=== PATIENT | male | born 1980 | race Caucasian/White ===

== ENCOUNTER → 2017-05-09 | Outpatient (CLI) | payer BC ==
[2017-05-09 17:35] LABS: ANION GAP 10 MEQ/L (8-16); BLOOD UREA NITROGEN 19 MG/DL (7-18); CALCIUM LEVEL 9.4 MG/DL (8.5-10.1); CARBON DIOXIDE LEVEL 26 MEQ/L (21-32); CHLORIDE LEVEL 107 MEQ/L (98-107); CHOLESTEROL LEVEL 196 MG/DL (<200); CREATININE FOR GFR 1.18 MG/DL (0.70-1.30); GLOMERULAR FILTRATION RATE > 60.0 (>60); GLUCOSE, FASTING 106 MG/DL (70-105); POTASSIUM SERUM 4.1 MEQ/L (3.5-5.1); SODIUM LEVEL 143 MEQ/L (136-145); TRIGLYCERIDES LEVEL 156 MG/DL (<150)
== END ==
LOC: M WUC 11:47
PROVIDERS: ATTEND Student in an Organized Health Care Education/Training Program
DX: Z13.220 Encounter for screening for lipoid disorders (principal); Z83.3 Family history of diabetes mellitus

== ENCOUNTER → 2017-06-15 | Outpatient (CLI) | payer BC ==
--- NOTE | 2017-06-15 17:11 | REP ---
Soft tissue ultrasound of the dorsum of the right foot for a palpable mass: There are no comparison studies. There is a complex mass containing multiple solid and cystic components measuring 1.7 x 1.2 x 0.6 cm, corresponding to the palpable mass. This could represent abscess, hematoma, inclusion cyst, or neoplasm. I would recommend MRI follow-up. Signed by Justin Jimenez MD 06/15/2017 05:02 P
== END ==
LOC: M RAD 16:00
PROVIDERS: ATTEND Student in an Organized Health Care Education/Training Program
DX: R22.41 Localized swelling, mass and lump, right lower limb (principal)

== ENCOUNTER → 2017-07-09 | Outpatient (REF) | payer BC | LOC: M SFHCPLAZ 14:58 | PROVIDERS: ATTEND Family Medicine | DX: R00.0 Tachycardia, unspecified (principal) ==

== ENCOUNTER → 2017-08-03 | Outpatient (CLI) | payer BC ==
[~2017-08-03] MED LIST: PROHANCE 279.3MG/ML 15ML VIAL (A9576) As Ordered ONE; PROHANCE 279.3MG/ML 5ML VIAL (A9576) As Ordered ONE
--- NOTE | 2017-08-03 17:15 | REP ---
MRI RIGHT FOOT WITH AND WITHOUT CONTRAST: Multiple sequences obtained in the axial, coronal and sagittal planes prior to and following the intravenous administration of 25 mL of contrast. A palpable abnormality is present at the dorsum of the foot and this is marked on the skin. At the site of the reported palpable abnormality is a subcutaneous nodule which is hypointense on T1 and hyperintense on T2. There is enhancement of this subcutaneous nodule with a central area of nonenhancement, likely representing fluid. In total, the area measures 10 x 6 x 10 mm. A venous structure courses just deep to this subcutaneous nodule. No other abnormal signal is seen in the visualized soft tissues of the right foot and there is no other area of significant abnormal enhancement. The visualized osseous structures demonstrate normal marrow signal with no edema and no abnormal enhancement. IMPRESSION: At the site of the reported palpable abnormality, is a subcutaneous nodule with peripheral enhancement. There is a central nonenhancing cystic component. This may represent a complex or inflamed sebaceous cyst. The appearance is nonspecific. Signed by Justin Alexandre MD 08/06/2017 05:51 P
== END ==
LOC: M RAD 14:13
PROVIDERS: ATTEND Student in an Organized Health Care Education/Training Program
DX: R22.41 Localized swelling, mass and lump, right lower limb (principal)
CPT/HCPCS: 73720; A9576

== ENCOUNTER 2018-01-08 14:48 | Emergency (ER) | payer BC | END 2018-01-08 18:25 | disposition home or self-care (01) | LOC: M ED 14:48 | DX: R25.2 Cramp and spasm (principal); Z98.890 Other specified postprocedural states; Z98.84 Bariatric surgery status; Z79.899 Other long term (current) drug therapy; Z87.891 Personal history of nicotine dependence | CPT/HCPCS: 93970 ==

== ENCOUNTER → 2018-01-16 | Outpatient (REF) | payer BC ==
[2018-01-17 23:25] LABS: ESTIMATED AVERAGE GLUCOSE 148 MG/DL (60-110); HEMOGLOBIN A1c 6.8 %
== END ==
LOC: M SFHCPLAZ 11:57
DX: R73.09 Other abnormal glucose (principal)

== ENCOUNTER → 2018-03-04 | Outpatient (REF) | payer BC ==
[2018-03-04 19:31] LABS: MALB URINE SIEMENS 35.5 MG/L; MAU/CREAT RATIO 6.1 MCG/MG (0.0-30.0)
== END ==
LOC: M SFHCPLAZ 15:17
DX: E11.9 Type 2 diabetes mellitus without complications (principal)

== ENCOUNTER → 2018-04-11 | Outpatient (REF) | payer BC ==
[2018-04-11 16:08] LABS: ESTIMATED AVERAGE GLUCOSE 103 MG/DL (60-110); HEMOGLOBIN A1c 5.2 %
== END ==
LOC: M SFHCPLAZ 14:06
DX: E11.9 Type 2 diabetes mellitus without complications (principal)
CPT/HCPCS: 83036

== ENCOUNTER → 2018-05-29 | Outpatient (REF) | payer BC | LOC: M WUC 09:06 | DX: J02.9 Acute pharyngitis, unspecified (principal) | CPT/HCPCS: 87070 ==

== ENCOUNTER → 2018-08-23 | Outpatient (CLI) | payer OTHER ==
[~2018-08-23] MED LIST changes: +FAMO20TA PO; +LOVE1INJ SC; +MULTCAP11 PO; -PROHANCE 279.3MG/ML 15ML VIAL (A9576) As Ordered ONE; -PROHANCE 279.3MG/ML 5ML VIAL (A9576) As Ordered ONE; +VITA100L PO; +ZOFR4TAB14 PO
[2018-08-23 16:59] LABS: BASO % 0.6 % (0.0-1.0); EOS # 0.2 10^3/uL (0.0-0.50); EOS % 3.5 % (0.0-3.0); HEMATOCRIT 47.7 % (42.0-52.0); HEMOGLOBIN 15.2 g/dl (13.5-17.5); LYMPH # 1.9 10^3/uL (1.5-4.5); LYMPH % 30.6 % (24.0-44.0); MEAN CORPUSCULAR HEMOGLOBIN 29.6 pg (27.0-33.0); MEAN CORPUSCULAR HGB CONC 31.9 g/dl (32.0-36.5); MEAN CORPUSCULAR VOLUME 92.8 fl (80.0-96.0); MONO # 0.5 10^3/uL (0.0-0.8); MONO % 8.2 % (0.0-5.0); NEUTROPHILS # 3.6 10^3/uL (1.8-7.7); NEUTROPHILS % 56.8 % (36.0-66.0); PLATELET COUNT, AUTOMATED 293 10^3/uL (150-450); RED BLOOD COUNT 5.14 10^6/uL (4.30-6.10); WHITE BLOOD COUNT 6.4 10^3/uL (4.0-10.0)
[2018-08-23 17:00] LABS: HEMATOCRIT 47.7 % (42.0-52.0); HEMOGLOBIN A1c 5.3 %
[2018-08-23 17:06] LABS: ALBUMIN 3.4 GM/DL (3.2-5.2); ALT/SGPT 21 U/L (12-78); BILIRUBIN,TOTAL 0.5 MG/DL (0.2-1.0); BLOOD UREA NITROGEN 20 MG/DL (7-18); CALCIUM LEVEL 8.8 MG/DL (8.5-10.1); CARBON DIOXIDE LEVEL 33 MEQ/L (21-32); CHLORIDE LEVEL 109 MEQ/L (98-107); CREATININE FOR GFR 0.95 MG/DL (0.70-1.30); FERRITIN 68 NG/ML (26-388); GLOMERULAR FILTRATION RATE > 60.0 (>60); GLUCOSE, FASTING 53 MG/DL (70-100); IRON (FE) 71 UG/DL (65-175); PERCENT SATURATION 26.7 % (19.7-50.0); PHOSPHORUS LEVEL 3.4 MG/DL (2.5-4.9); POTASSIUM SERUM 4.2 MEQ/L (3.5-5.1); SODIUM LEVEL 147 MEQ/L (136-145); TOTAL IRON BINDING CAPACITY 266 UG/DL (250-450); TOTAL PROTEIN 6.1 GM/DL (6.4-8.2)
[2018-08-23 17:15] LABS: TOTAL 25(OH) VITAMIN D 75.2 NG/ML (30.0-100.0)
[2018-08-23 17:16] LABS: VITAMIN B12 LEVEL 595 PG/ML (247-911)
== END ==
LOC: M WUC 15:20
PROVIDERS: ATTEND Surgery
DX: K91.2 Postsurgical malabsorption, not elsewhere classified (principal); E55.9 Vitamin D deficiency, unspecified; Z98.84 Bariatric surgery status

== ENCOUNTER → 2018-11-04 | Outpatient (CLI) | payer BC | LOC: M OUTALCOH 07:50 | PROVIDERS: ATTEND Psychiatry & Neurology Psychiatry | DX: F10.20 Alcohol dependence, uncomplicated (principal) ==

== ENCOUNTER → 2018-12-17 | Outpatient (RCR) | payer BC | LOC: M OUTALCOH 11-21 15:34 | PROVIDERS: ATTEND Psychiatry & Neurology Psychiatry | DX: F10.20 Alcohol dependence, uncomplicated (principal); Z72.0 Tobacco use ==

== ENCOUNTER 2019-01-16 16:00 | Outpatient (RCR) | payer BC | END 2019-01-17 | LOC: M OUTALCOH 16:00 | PROVIDERS: ATTEND Psychiatry & Neurology Psychiatry | DX: F10.20 Alcohol dependence, uncomplicated (principal) ==

== ENCOUNTER 2019-02-13 16:00 | Outpatient (RCR) | payer BC | END 2019-02-16 | LOC: M OUTALCOH 16:00 | PROVIDERS: ATTEND Psychiatry & Neurology Psychiatry | DX: F10.20 Alcohol dependence, uncomplicated (principal) ==

== ENCOUNTER 2019-03-17 15:00 | Outpatient (RCR) | payer BC | END 2019-03-19 | LOC: M OUTALCOH 15:00 | PROVIDERS: ATTEND Psychiatry & Neurology Psychiatry | DX: F10.20 Alcohol dependence, uncomplicated (principal) ==

== ENCOUNTER 2019-04-18 15:30 | Outpatient (RCR) | payer BC | END 2019-04-19 | LOC: M OUTALCOH 15:30 | PROVIDERS: ATTEND Psychiatry & Neurology Psychiatry | DX: F10.20 Alcohol dependence, uncomplicated (principal) ==

== ENCOUNTER 2019-05-16 16:00 | Outpatient (RCR) | payer BC | END 2019-05-19 | LOC: M OUTALCOH 16:00 | PROVIDERS: ATTEND Psychiatry & Neurology Psychiatry | DX: F10.20 Alcohol dependence, uncomplicated (principal) ==

== ENCOUNTER 2019-06-09 16:00 | Outpatient (RCR) | payer BC | END 2019-06-19 | LOC: M OUTALCOH 16:00 | PROVIDERS: ATTEND Psychiatry & Neurology Psychiatry | DX: F10.20 Alcohol dependence, uncomplicated (principal) ==

== ENCOUNTER 2019-07-28 09:41 | Outpatient (RCR) | payer BC | END 2019-08-19 | LOC: M OUTALCOH 09:41 | PROVIDERS: ATTEND Psychiatry & Neurology Psychiatry | DX: F10.20 Alcohol dependence, uncomplicated (principal) ==

== ENCOUNTER 2019-09-01 15:53 | Outpatient (RCR) | payer BC | END 2019-09-19 | LOC: M OUTALCOH 15:53 | PROVIDERS: ATTEND Psychiatry & Neurology Addiction Medicine | DX: F10.20 Alcohol dependence, uncomplicated (principal) ==

== ENCOUNTER 2019-10-13 15:30 | Outpatient (RCR) | payer BC | END 2019-10-18 | LOC: M OUTALCOH 15:30 | PROVIDERS: ATTEND Psychiatry & Neurology Addiction Medicine | DX: F10.20 Alcohol dependence, uncomplicated (principal) ==

== ENCOUNTER → 2019-11-18 | Outpatient (RCR) | payer BC | LOC: M OUTALCOH 07:59 | PROVIDERS: ATTEND Psychiatry & Neurology Addiction Medicine | DX: F10.20 Alcohol dependence, uncomplicated (principal) ==